=== PATIENT | female | born 1995 | race Caucasian/White ===

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

== ENCOUNTER 2017-01-24 20:02 | Outpatient (CLI) | payer OTHER ==
[2017-01-24 20:31] VITALS: BP 132/69
[2017-01-24] MEDS ORDERED: PRENATAL TABLE1 EAC3 PO (21:05)
== END 2017-01-24 21:25 | disposition home or self-care (01) ==
LOC: LDRP-OP 20:02 → 2WEST 20:03
DX: O47.9 False labor, unspecified (principal); Z3A.00 Weeks of gestation of pregnancy not specified
CPT/HCPCS: 59025; G0378

== ENCOUNTER 2017-03-18 17:20 | Inpatient (IN) | payer OTHER ==
[~2017-03-18] VITALS: Ht 180.3 cm; Wt 142.0 kg
[2017-03-18] VITALS (11 sets, daily range): BP systolic 106–158; BP diastolic 52–85
[~2017-03-18 17:20] MED LIST changes: +PRENATAL TABLE1 EAC3 PO
[2017-03-18 21:58] LABS: BASOPHIL (%) 0.1 % (0-1); EOSINOPHIL (%) 0.7 % (0-5); EOSINOPHIL COUNT 0.1 K/uL (0-0.3); HEMATOCRIT 34.6 % (36.0-46.0); HEMOGLOBIN 10.8 G/DL (11.9-15.5); IMMATURE GRANULOCYTE (%) 0.8 % (0.0-0.7); LYMPHOCYTE (%) 17.4 % (15-42); LYMPHOCYTE COUNT 2.4 K/uL (1.0-2.8); MCH 25.1 PG (29.0-34.0); MCHC 31.2 G/DL (30.0-36.0); MCV 80.3 FL (83-99); MONOCYTE (%) 5.5 % (3-12); MONOCYTE COUNT 0.8 K/uL (0-0.8); NEUTROPHIL (%) 75.5 % (45-76); NEUTROPHIL COUNT 10.4 K/uL (1.8-6.4); PLATELET COUNT 364 K/uL (156-360); RBC DIS.WIDTH-CV 15.4 % (11.8-14.6); RBC DIS.WIDTH-SD 44.8 % (39-53); RED BLOOD COUNT 4.31 M/uL (3.80-5.20); WHITE BLOOD COUNT 13.8 K/uL (4.1-10.2)
[2017-03-19] VITALS (14 sets, daily range): BP systolic 107–145; BP diastolic 49–95
[2017-03-19] MEDS ORDERED: IBUPROFEN800 MG PO (07:55)
== END 2017-03-21 14:51 | disposition home or self-care (01) | DRG 775 ==
LOC: LDRP-OP 17:20 → 2WEST 17:22 → LDRP-OP 03-20 14:42 → 2WEST 03-21 14:51 → LDRP-OP 04-14 21:29
PROVIDERS: Advanced Practice Midwife
PROC: 10E0XZZ Delivery of Products of Conception, External Approach (ICD-10-PCS; principal; 2017-03-19)
PROC: 0KQM0ZZ Repair Perineum Muscle, Open Approach (ICD-10-PCS; principal; 2017-03-19)
PROC: 10907ZC Drainage of Amniotic Fluid, Therapeutic from Products of Conception, Via Natural or Artificial Opening (ICD-10-PCS; 2017-03-19)
PROC: 3E0S3BZ Introduction of Anesthetic Agent into Epidural Space, Percutaneous Approach (ICD-10-PCS; 2017-03-19)
PROC: 00HU33Z Insertion of Infusion Device into Spinal Canal, Percutaneous Approach (ICD-10-PCS; 2017-03-19)
DX: O99.214 Obesity complicating childbirth (principal); F33.9 Major depressive disorder, recurrent, unspecified; O99.344 Other mental disorders complicating childbirth; F41.9 Anxiety disorder, unspecified; F90.9 Attention-deficit hyperactivity disorder, unspecified type; Z91.013 Allergy to seafood; E66.9 Obesity, unspecified; Z37.0 Single live birth; Z3A.40 40 weeks gestation of pregnancy; O12.04 Gestational edema, complicating childbirth; O76 Abnormality in fetal heart rate and rhythm complicating labor and delivery; O77.0 Labor and delivery complicated by meconium in amniotic fluid; O70.1 Second degree perineal laceration during delivery; O71.82 Other specified trauma to perineum and vulva; Z80.3 Family history of malignant neoplasm of breast; Z83.3 Family history of diabetes mellitus
CPT/HCPCS: 85025; C1755; G0378; J3010; J7120